=== PATIENT | male | born 1985 | race Caucasian/White ===

== ENCOUNTER 2018-02-07 19:06 | Emergency (ER) | payer SELFPAY ==
[~2018-02-07] VITALS: Ht 170.2 cm; Wt 61.2 kg
--- NOTE | 2018-02-07 20:28 | ED Cough/URI ---
General Chief Complaint: Cough/Cold/Flu Symptoms Stated Complaint: COUGHING,CONGESTED Source: patient Exam Limitations: no limitations History of Present Illness Date Seen by Provider: Feb 07, 2018 Time Seen by Provider: 20:27 Initial Comments To ER with a nonproductive cough for 2 weeks, sore throat today. Intermittent fevers. He just arrived here from [facility] 2-3 weeks ago Timing/Duration: constant Severity/Quality: moderate Associated Symptoms: cough, sore throat Allergies and Home Medications Allergies Coded Allergies: No Known Drug Allergies (Unverified , 02/07/18) Home Medications Azithromycin 250 Mg Tablet, 250 MG PO DAILY Prescribed by: JAQUELINE LEES on 02/07/182041 D-Methorphan Hb/P-Epd HCl/Bpm 118 Ml Syrup, 5 ML PO Q4H Prescribed by: JAQUELINE LEES on 02/07/182041 Patient Home Medication List Home Medication List Reviewed: Yes Review of Systems Review of Systems Constitutional: see HPI, chills EENTM: see HPI Respiratory: see HPI, cough Cardiovascular: no symptoms reported Genitourinary: no symptoms reported Musculoskeletal: no symptoms reported Skin: no symptoms reported Psychiatric/Neurological: No Symptoms Reported Past [id number] Hx Patient Social History Recent Foreign Travel: No Contact w/Someone Who Travel: No Physical Exam Vital Signs - First Documented 02/07/18 20:17 Temp 98.9 Pulse 85 Resp 22 Pulse Ox 98 Capillary Refill : Height: '" Weight: lbs. oz. kg; BMI Method: General Appearance: WD/WN, no apparent distress Eyes: Bilateral Eye Normal Inspection, Bilateral Eye PERRL, Bilateral Eye EOMI HEENT: PERRL/EOMI, normal ENT inspection Respiratory: no respiratory distress, no accessory muscle use Cardiovascular: regular rate, rhythm, no murmur Gastrointestinal: normal bowel sounds, non tender, soft Extremities: normal range of motion, non-tender Neurologic/Psychiatric: alert, normal mood/affect, oriented x 3 Skin: normal color, warm/dry Progress/Results/Core Measures Suspected Sepsis SIRS Temperature: Pulse: Respiratory Rate: Blood Pressure / Mean: Results/Orders My Orders Orders - JAQUELINE LEES APRN Chest Pa/Lat (2 View) (02/07/18 20:22) Azithromycin Tablet (Zithromax Tablet) (02/07/18 20:45) Vital Signs/I&O 02/07/18 20:17 Temp 98.9 Pulse 85 Resp 22 B/P (MAP) Pulse Ox 98 Capillary Refill : Departure Impression Primary Impression: Bronchitis Disposition: 01 HOME, SELF-CARE Condition: Stable Departure-Patient Inst. Decision time for Depature: 20:40 Referrals: NO,LOCAL PHYSICIAN (PCP) Primary Care Physician Patient Instructions: Acute Bronchitis, Adult (DC) Add. Discharge Instructions: 1. Medication as directed 2. Follow-up with your doctor next week 3. All discharge instructions reviewed with patient and/or family. Voiced understanding. Scripts D-Methorphan Hb/P-Epd HCl/Bpm (Bromfed Dm Cough Syrup) 118 Ml Syrup 5 ML PO Q4H, #120 ML Prov: JAQUELINE LEES APRN 02/07/18 Azithromycin (Azithromycin) 250 Mg Tablet 250 MG PO DAILY, #4 TAB Prov: JAQUELINE LEES APRN 02/07/18 Work/School Note: Work Release Form Date Seen in the Emergency Department: Feb 07, 2018 Return to Work: Feb 09, 2018 Restrictions: No Restrictions JAQUELINE LEES APRN Feb 07, 2018 20:28
[2018-02-07] MEDS ORDERED: D-ME118S33 PO (20:42)
[2018-02-07] MEDS ORDERED: AZIT250T12 PO (20:42)
[2018-02-07] MEDS: AZITHROMYCIN 250 MG TAB (ZITHROMAX) PO SCH ×2 (20:54→21:35)
--- NOTE | 2018-02-07 21:18 | Diagnostic Imaging Report ---
INDICATION: Cough. Sore throat COMPARISON: None FINDINGS: Frontal and lateral views of the chest demonstrate normal heart size and pulmonary vascularity. The lungs are clear. There are no signs of infiltrate, pleural effusions or pneumothoraces. The visualized osseous structures show no acute abnormalities. IMPRESSION: 1. No acute process. No signs of infiltrates, effusions or pneumothoraces. Dictated by: Dictated on workstation # [id number]
[2018-02-07 21:43] VITALS: BP 118/84
[2018-02-07] MEDS: RX-ACETAMINOPHEN/CODEINE TAB PPK #4 PO SCH (21:43)
== END 2018-02-07 21:43 | disposition home or self-care (01) ==
LOC: ER 19:08
DX: J40 Bronchitis, not specified as acute or chronic (principal)
CPT/HCPCS: 71046